=== PATIENT | female | born 1970 | race Two or more races ===

== ENCOUNTER 2020-03-11 13:33 | Emergency (ER) | payer MEDICAID, OTHER ==
[~2020-03-11] VITALS: Ht 170.2 cm; Wt 111.1 kg
[2020-03-11 13:49] VITALS: BP 127/45
[2020-03-11] MEDS ORDERED: traMADol HCL 50 MG TAB PO ONE (15:15)
== END 2020-03-11 15:45 | disposition home or self-care (01) ==
LOC: ER 13:33
DX: S16.1XXA Strain of muscle, fascia and tendon at neck level, initial encounter (principal); I25.10 Atherosclerotic heart disease of native coronary artery without angina pectoris; I10 Essential (primary) hypertension; Z90.49 Acquired absence of other specified parts of digestive tract; Z98.890 Other specified postprocedural states; V49.49XA Driver injured in collision with other motor vehicles in traffic accident, initial encounter; Y93.89 Activity, other specified; Y92.488 Other paved roadways as the place of occurrence of the external cause; Y99.8 Other external cause status
CPT/HCPCS: 71046; 72040